=== PATIENT | female | born 1980 | race Caucasian/White ===

== ENCOUNTER 2021-02-04 19:22 | Emergency (ER) | payer OTHER ==
[~2021-02-04] VITALS: Ht 167.6 cm; Wt 45.4 kg
[~2021-02-04 19:22] MED LIST: Benadryl 50 mg50 MG PO; CLOBET30L TOP; CLON.5 PO; CODACE30 PO; CYCL10 PO; Cipro500 MG PO; DOXY100 PO; HYDHCL25 PO; HYDR1TAB94; IBUP600 PO; IBUP800 PO; Klonopin0.5 MG PO; METPRE4DP PO; METR500 PO; OXYACE5T PO; PROM25 PO; Pyridium200 MG PO; QUET100 PO; SULTRIDS PO; TRAM50 PO; Ultram50 MG PO; Vistaril25 MG PO; Zofran Odt4 MG SL
[2021-02-04] MEDS ORDERED: AMPDEX5 (19:48)
[2021-02-04] MEDS ORDERED: CEPH500 PO (20:05)
== END 2021-02-04 20:15 | disposition home or self-care (01) ==
LOC: ER 19:22
DX: L03.012 Cellulitis of left finger (principal); L03.116 Cellulitis of left lower limb
CPT/HCPCS: 99281; A9270

== ENCOUNTER 2023-04-12 20:37 | Emergency (ER) | payer OTHER ==
[~2023-04-12] VITALS: Ht 162.6 cm; Wt 46.3 kg
[~2023-04-12 20:37] MED LIST changes: +AMPDEX5; +CEPH500 PO
[2023-04-12 21:00] VITALS: BP 164/103
== END 2023-04-12 22:02 | disposition home or self-care (01) ==
LOC: ER 20:37
DX: R60.0 Localized edema (principal); Z79.899 Other long term (current) drug therapy; F17.210 Nicotine dependence, cigarettes, uncomplicated
CPT/HCPCS: 99283